=== PATIENT | male | born 1985 | race Hispanic/Latino ===

== ENCOUNTER 2020-04-03 15:59 | Emergency (ER) | payer SELFPAY ==
[2020-04-03 16:13] VITALS: BP 162/109
[2020-04-03] MEDS ORDERED: predniSONE 20 MG TAB PO ONE (17:14)
[2020-04-03] MEDS ORDERED: KETOROLAC 30 MG/1 ML INJ IM ONE (17:14)
--- NOTE | 2020-04-03 18:08 | Emergency Department Report ---
ED Back Pain/Injury HPI - General Chief Complaint: Back Pain/Injury Stated Complaint: BACK PAIN Time Seen by Provider: 04/03/20 16:49 Source: patient Limitations: No Limitations - History of Present Illness Initial Comments: This is a 34-year-old male who presents the ED with a history of cervical radiculopathy complaining of lower back pain that began 4 to 5 days ago. Patient states he used to see [facility] orthopedics for history of cervical radiculopathy but has not been there for his lower back. Patient states that he works a lot and was at work today when he had to leave due to his lower back pain. He denies any injury trauma and urinary symptoms bowel irregularities or any other problems. MD Complaint: back pain - Related Data Previous Rx's Medication Instructions Recorded Last Taken Type Ibuprofen [Motrin] 600 mg PO Q8H PRN #60 tablet 10/27/15 Unknown Rx Penicillin Vk [Veetids TAB] 500 mg PO QID #40 tablet 10/27/15 Unknown Rx traMADoL [Ultram] 50 mg PO Q6HR PRN #14 tablet 10/27/15 Unknown Rx Cyclobenzaprine [Flexeril] 10 mg PO QHS PRN #10 tablet 04/03/20 Unknown Rx Ibuprofen [Motrin] 800 mg PO Q8HR #30 tablet 04/03/20 Unknown Rx Allergies Allergy/AdvReac Type Severity Reaction Status Date / Time No Known Allergies Allergy Verified 09/11/15 08:55 ED Review of Systems ROS: Stated complaint: BACK PAIN Other details as noted in HPI Comment: All other systems reviewed and negative ED Past Medical Hx - Past Medical History CERVICAL RADICULOPATHY. MRSA ED Back Pain Physical Exam - Exam General: Vital signs noted. No distress. Alert and acting appropriately. Back/Abdomen: No Abdominal Tenderness, No Perithoracic Tenderness, No Perilumbar Tenderness, No Sacroiliac Tenderness, No Flank Tenderness, No Straight Leg Raise Pain Neuro: Yes Normal Sensation, Yes Normal DTR's, Yes Normal Gait, No Motor Weakness ED Course Vital Signs 04/03/20 04/03/20 16:10 16:12 Temperature 98.1 F Pulse Rate 106 H Respiratory 20 Rate Blood Pressure 155/117 Blood Pressure 162/109 [Left] O2 Sat by Pulse 100 Oximetry ED Medical Decision Making - Medical Decision Making 34-year-old female presents to ED with myalgia of the lower back secondary to lumbar radiculopathy ED course: Patient received Toradol and prednisone in ED. Vital signs are normal patient is in no acute distress Discussed with patient follow-up with primary care physician. I also discussed to follow-up with [facility] to continue care. Discussed back brace for work Discussed the patient and take medications as prescribed. Patient has no neurological deficit. Patient is alert and oriented 3 and understands all instructions given. Discussed drowsiness effect of Flexeril makes him drowsy and not to operate machinery while taking flexeril Critical care attestation.: If time is entered above; I have spent that time in minutes in the direct care of this critically ill patient, excluding procedure time. ED Disposition Clinical Impression: Lumbar radiculopathy Disposition: TO HOME OR SELFCARE Is pt being admited?: No Does the pt Need Aspirin: No Condition: Stable Instructions: Lumbar Radiculopathy (ED) Additional Instructions: Make sure to follow up with the primary care physician as discussed. If you have any worsening symptoms or develop new symptoms please return to ED immediately. Prescriptions: Cyclobenzaprine [Flexeril] 10 mg PO QHS PRN #10 tablet PRN Reason: Muscle Spasm Ibuprofen [Motrin] 800 mg PO Q8HR #30 tablet Referrals: PRIMARY CARE, [Primary Care Provider] - 3-5 Days [facility] [Provider Group] - 3-5 Days Forms: Work/School Release Form(ED) Time of Disposition: 18:15
== END 2020-04-03 18:22 | disposition home or self-care (01) ==
LOC: ED 15:59
DX: M54.16 Radiculopathy, lumbar region (principal); Z79.899 Other long term (current) drug therapy
CPT/HCPCS: 96372; 99282; J1885; J7512

== ENCOUNTER 2022-04-10 08:02 | Emergency (ER) | payer SELFPAY ==
[2022-04-10] MEDS ORDERED: ONDANSETRON 4 MG/2 ML INJ IV PRN (08:32)
[2022-04-10] MEDS ORDERED: NALOXONE 0.4 MG/1 ML INJ IV PRN (08:32)
--- NOTE | 2022-04-10 08:36 | Emergency Department Report ---
ED General Adult HPI - General Chief complaint: Overdose Stated complaint: OVERDOSE PUI?: No Time Seen by Provider: 04/10/22 08:26 Source: patient, EMS (Verbal report received from emergency medical services. EMS documentation not available at time of chart dictation ), RN notes reviewed, old records reviewed Mode of arrival: Stretcher Limitations: Other (Intoxication) - History of Present Illness Initial comments: The patient was evaluated in the emergency department for symptoms described in the history of present illness. He/she was evaluated in the context of the global COVID-19 pandemic, which necessitated consideration that the patient might be at risk for infection with the virus that causes COVID-19. [facility] protocols and algorithms that pertain to the evaluation of patients at risk for COVID-19 are in a state of rapid change based on information released by regulatory bodies including the CDC and federal and state organizations. These policies and algorithms were followed during the patient's care in the emergency department. Please note that these policies, procedures and recommendations changed on a rapid basis. This patient is a 36-year-old gentleman who was brought to the hospital by emergency medical services with an EMS articulated complaint of overdose. EMS reports that they were called by patient's abdirashid. They report that they have a suspicion for the patient having overdosed on opioids. They report the patient is found in a chair, minimally responsive, breathing 6 times per minute. EMS gave the patient Narcan in the field, with immediate improvement in symptoms. The patient denies physical pain. The patient reports consuming recreational alcohol. The patient denies opioid overdose. The patient denies homicidality and suicidality. He reports that he feels "fin e" at the moment. -: This morning Severity scale (0 -10): 0 Consistency: now resolved Improves with: other (Narcan) Worsens with: none - Related Data Previous Rx's Medication Instructions Recorded Last Taken Type Ibuprofen [Motrin] 600 mg PO Q8H PRN #60 tablet 10/27/15 Unknown Rx Penicillin Vk [Veetids TAB] 500 mg PO QID #40 tablet 10/27/15 Unknown Rx Ibuprofen [Motrin] 800 mg PO Q8HR #30 tablet 04/03/20 Unknown Rx Multivitamin with Folic Acid [Cvs 400 mcg PO QDAY #30 tablet 04/10/22 Unknown Rx One Daily Essential Tablet] Naloxone HCl [Narcan Nasal [place]] 4 mg NS PRN PRN #1 spray 04/10/22 Unknown Rx Ondansetron [Zofran Odt] 4 mg PO Q8HR PRN #20 tab.rapdis 04/10/22 Unknown Rx Allergies Allergy/AdvReac Type Severity Reaction Status Date / Time No Known Allergies Allergy Verified 04/10/22 08:08 ED Review of Systems ROS: Stated complaint: OVERDOSE Other details as noted in HPI Constitutional: denies: fever Eyes: denies: eye discharge ENT: denies: epistaxis Respiratory: denies: cough Cardiovascular: denies: chest pain Gastrointestinal: nausea, vomiting. denies: abdominal pain Psychiatric: denies: homicidal thoughts, suicidal thoughts ED Past Medical Hx - Past Medical History Hx Kidney Stones: Yes Additional medical history: CERVICAL RADICULOPATHY. MRSA - Surgical History Additional Surgical History: wrist - Social History Smoking Status: Current Every Day Smoker Substance Use Type: Alcohol - Medications Home Medications: Home Medications Medication Instructions Recorded Confirmed Last Taken Type Ibuprofen [Motrin] 600 mg PO Q8H PRN #60 tablet 10/27/15 Unknown Rx Penicillin Vk [Veetids TAB] 500 mg PO QID #40 tablet 10/27/15 Unknown Rx Ibuprofen [Motrin] 800 mg PO Q8HR #30 tablet 04/03/20 Unknown Rx Multivitamin with Folic Acid [[facility]vs 400 mcg PO QDAY #30 tablet 04/10/22 Unknown Rx One Daily Essential Tablet] Naloxone HCl [Narcan Nasal [place]] 4 mg NS PRN PRN #1 spray 04/10/22 Unknown Rx Ondansetron [Zofran Odt] 4 mg PO Q8HR PRN #20 tab.rapdis 04/10/22 Unknown Rx ED Physical Exam - General Limitations: Other (Patient presents as intoxicated) General appearance: appears intoxicated - Head Head exam: Present: atraumatic, normocephalic - Eye Eye exam: Present: normal appearance, EOMI, other. Absent: nystagmus - ENT ENT exam: Present: normal exam, normal orophraynx, mucous membranes moist, normal external ear exam - Neck Neck exam: Present: normal inspection, full ROM. Absent: tenderness, meningismus - Respiratory Respiratory exam: Present: normal lung sounds bilaterally. Absent: respiratory distress, wheezes, rales, rhonchi, stridor, decreased breath sounds - Cardiovascular Cardiovascular Exam: Present: regular rate, normal rhythm, normal heart sounds. Absent: bradycardia, tachycardia, irregular rhythm, systolic murmur, diastolic murmur, rubs, gallop - GI/Abdominal GI/Abdominal exam: Present: soft. Absent: distended, tenderness, guarding, rebound, rigid, pulsatile mass - Rectal Rectal exam: Present: deferred - Extremities Exam Extremities exam: Present: normal inspection, full ROM, other (2+ pulses noted in the bilateral upper and lower extremities. There is no palpable cord. negative Homans sign. Muscular compartments are soft. The pelvis is stable.). Absent: pedal edema, calf tenderness - Back Exam Back exam: Present: normal inspection. Absent: tenderness, CVA tenderness (R), CVA tenderness (L), paraspinal tenderness, vertebral tenderness - Neurological Exam Neurological exam: Present: other (There is no facial droop. The tongue is midline. EOMI. 5 out of 5 strength in 4 extremities.) - Psychiatric Psychiatric exam: Absent: homicidal ideation, suicidal ideation - Skin Skin exam: Present: warm, dry, intact, normal color. Absent: rash ED Course Vital Signs 04/10/22 04/10/22 04/10/22 08:04 08:42 08:46 Temperature 98.3 F Pulse Rate 87 Respiratory 14 Rate Blood Pressure Blood Pressure 138/86 [Left] O2 Sat by Pulse 97 93 93 Oximetry O2 Sat by Pulse Oximetry [ Digit-Finger] 04/10/22 04/10/22 04/10/22 09:00 09:16 09:30 Temperature Pulse Rate 71 73 77 Respiratory 9 L 11 L 9 L Rate Blood Pressure Blood Pressure [Left] O2 Sat by Pulse 97 98 Oximetry O2 Sat by Pulse Oximetry [ Digit-Finger] 04/10/22 04/10/22 04/10/22 09:46 10:00 10:16 Temperature Pulse Rate 67 71 65 Respiratory 10 L 13 9 L Rate Blood Pressure Blood Pressure [Left] O2 Sat by Pulse 96 97 100 Oximetry O2 Sat by Pulse Oximetry [ Digit-Finger] 04/10/22 04/10/22 04/10/22 10:30 10:46 11:00 Temperature Pulse Rate 82 66 65 Respiratory 14 8 L 8 L Rate Blood Pressure Blood Pressure [Left] O2 Sat by Pulse 99 100 99 Oximetry O2 Sat by Pulse Oximetry [ Digit-Finger] 04/10/22 04/10/22 04/10/22 11:16 11:25 11:30 Temperature Pulse Rate 66 66 Respiratory 8 L 9 L Rate Blood Pressure 111/64 Blood Pressure [Left] O2 Sat by Pulse 98 98 97 Oximetry O2 Sat by Pulse Oximetry [ Digit-Finger] 04/10/22 04/10/22 04/10/22 11:41 11:46 12:00 Temperature Pulse Rate 66 65 Respiratory 9 L 9 L Rate Blood Pressure 111/64 110/67 Blood Pressure [Left] O2 Sat by Pulse 97 99 Oximetry O2 Sat by Pulse 99 Oximetry [ Digit-Finger] 04/10/22 04/10/22 04/10/22 12:16 12:30 12:46 Temperature Pulse Rate 61 70 56 L Respiratory 7 L 13 8 L Rate Blood Pressure 110/67 113/65 113/65 Blood Pressure [Left] O2 Sat by Pulse 98 98 100 Oximetry O2 Sat by Pulse Oximetry [ Digit-Finger] - Reevaluation(s) Reevaluation #1: 04/10/22 09:17 Differential diagnosis, including but not limited to: Alcohol intoxication, opioid overdose Assessment and plan: 36-year-old gentleman, who was intoxicated, but pleasant, calm and cooperative, alert to name, place and location, who is not homicidal, who is not suicidal, presenting with probable opioid overdose complicated by alcohol intoxication. Lung sounds clear. No history of head trauma. As per EMS, they gave Narcan at approximately 7:30 AM. We will observe patient pending clinical sobriety, and at least for 4 hours. As needed Zofran, as needed Narcan ordered. Reassess after laboratory studies have resulted, and we will continue to reassess for clinical sobriety. 04/10/22 11:41 No acute distress. Laboratory studies unremarkable. Sleeping comfortably in stretcher. O2 sat 98%. 04/10/22 13:17 The patient is reevaluated. He is awake, alert, oriented and sober at this time. He denies physical complaints at this time. His is here to pick him up. He will be discharged at this time. No desaturation noted. - Pulse Oximetry Interpretation Digit-Finger Initial Pulse Oximetry Readin O2 Sat by Pulse Oximetry: 99 Actions Taken: none ED Medical Decision Making - Lab Data Result diagrams: 04/10/22 08:50 Vital Signs 04/10/22 08:04 Temperature 98.3 F Pulse Rate 87 Respiratory 14 Rate Blood Pressure 138/86 [Left] O2 Sat by Pulse 97 Oximetry Lab Results 04/10/22 04/10/22 04/10/22 Range/Units 08:50 08:50 08:50 Sodium 136 L (137-145) mmol/L Potassium 3.5 L (3.6-5.0) mmol/L Chloride 97.1 L (98-107) mmol/L Carbon Dioxide 27 (22-30) mmol/L Anion Gap 15 mmol/L BUN 22 H (9-20) mg/dL Creatinine 1.0 (0.8-1.3) mg/dL Estimated GFR > 60 ml/min BUN/Creatinine Ratio 22 % Glucose 94 (75-100) mg/dL Calcium 8.4 (8.4-10.2) mg/dL Magnesium 2.30 (1.7-2.3) mg/dL Total Bilirubin 0.30 (0.1-1.2) mg/dL AST 32 (5-40) units/L ALT 28 (7-56) units/L Alkaline Phosphatase 77 (35-129) units/L Total Protein 7.1 (6.3-8.2) g/dL Albumin 4.3 (3.9-5) g/dL Albumin/Globulin Ratio 1.5 % Salicylates < 0.3 L (2.8-20.0) mg/dL Acetaminophen 5.0 L (10.0-30.0) ug/mL Plasma/Serum Alcohol (0-0.07) % 04/10/22 Range/Units 08:50 Sodium (137-145) mmol/L Potassium (3.6-5.0) mmol/L Chloride (98-107) mmol/L Carbon Dioxide (22-30) mmol/L Anion Gap mmol/L BUN (9-20) mg/dL Creatinine (0.8-1.3) mg/dL Estimated GFR ml/min BUN/Creatinine Ratio % Glucose (75-100) mg/dL Calcium (8.4-10.2) mg/dL Magnesium (1.7-2.3) mg/dL Total Bilirubin (0.1-1.2) mg/dL AST (5-40) units/L ALT (7-56) units/L Alkaline Phosphatase (35-129) units/L Total Protein (6.3-8.2) g/dL Albumin (3.9-5) g/dL Albumin/Globulin Ratio % Salicylates (2.8-20.0) mg/dL Acetaminophen (10.0-30.0) ug/mL Plasma/Serum Alcohol < 0.01 (0-0.07) % - EKG Data -: EKG Interpreted by Me EKG shows normal: sinus rhythm Rate: normal - EKG Data When compared to previous EKG there are: previous EKG unavailable 04/10/22 09:15 The EKG is interpreted at 8: 45 Sinus rhythm, 73 bpm. Normal axis, normal P wave axis, QTC 4 9 5 ms, and high left ventricular voltage. This is an abnormal EKG. This is not a STEMI peer Critical care attestation.: If time is entered above; I have spent that time in minutes in the direct care of this critically ill patient, excluding procedure time. ED Disposition Clinical Impression: Overdose Disposition: 01 HOME / SELF CARE / HOMELESS Is pt being admited?: No Does the pt Need Aspirin: No Condition: Good Instructions: Accidental Drug Poisoning, Adult Additional Instructions: Avoid consumption of alcohol, tobacco, smoke products. Do not consume opioids, narcotics, or recreational drugs. Consumption of recreational drugs may lead to overdose, which can cause , disability, paralysis, loss of quality of life. Use the Narcan medication as needed and directed. Follow-up with a primary care doctor within the next week for repeat checkup and evaluation. Recommend that patient not drive or operate motor vehicles until medically cleared to do so by a primary care doctor. Please return to the emergency room right away with new pain, worsened pain, migration of pain, projectile vomiting, change in mental status, confusion, inability tolerate liquid feeds, new, worsened or different symptoms not present on the initial emergency room evaluation Prescriptions: Multivitamin with Folic Acid [Cvs One Daily Essential Tablet] 400 mcg PO QDAY #30 tablet Naloxone HCl [Narcan Nasal [place]] 4 mg NS PRN PRN #1 spray PRN Reason: Opioid Reversal Ondansetron [Zofran Odt] 4 mg PO Q8HR PRN #20 tab.rapdis PRN Reason: Nausea Referrals: [facility] [Outside] - 3-5 Days [facility] [Outside] - 3-5 Days [facility] [Provider Group] - 3-5 Days Forms: Work/School Release Form(ED)
[2022-04-10 09:33] LABS: Alanine Aminotransferase 28 units/L (7-56); Albumin 4.3 g/dL (3.9-5); BUN/Creatinine Ratio 22; Blood Urea Nitrogen 22 mg/dL (9-20); Calcium 8.4 mg/dL (8.4-10.2); Hemolysis Index 8
--- NOTE | 2022-04-10 11:19 | Electrocardiograph Report ---
[facility] Test Date: 2022-04-10 Test Time: 08:45:12 Pat Name: SIDNEY LEVY Department: Room: Gender: M Sales Marketing Manager: GAURAV : 1985 Requested By: SHON LOYOLA Order Number: [id number] Reading MD: Sebastian Reid Measurements Intervals [place] Rate: 73 P: 58 OR: 142 QRS: 54 QRSD: 101 T: 51 QT: 449 QTc: 495 Interpretive Statements Sinus rhythm Probable left ventricular hypertrophy Prolonged QT interval No previous ECG available for comparison Electronically Signed On 04-10-2022 11:18:26 EDT by Sebastian Reid
[2022-04-10 14:36] VITALS: BP 121/64
== END 2022-04-10 14:00 | disposition home or self-care (01) ==
LOC: ED 08:02
DX: T65.91XA Toxic effect of unspecified substance, accidental (unintentional), initial encounter (principal); Y92.89 Other specified places as the place of occurrence of the external cause; F17.200 Nicotine dependence, unspecified, uncomplicated; F10.20 Alcohol dependence, uncomplicated
CPT/HCPCS: 36415; 80053; 80320; 83735; 93005; 99283; G0480

== ENCOUNTER 2022-04-18 18:19 | Emergency (ER) | payer SELFPAY ==
--- NOTE | 2022-04-18 18:52 | Emergency Department Report ---
HPI - HPI HPI: Room 20 The patient is a 36-year-old male present with a chief complaint of opiate overdose. The patient was in the car with family when he states he intentionally took to 30 mg Roxicet. Patient admits to consuming alcohol earlier in the day. The patient went unresponsive and EMS was called. CPR was performed and the patient was administered Narcan 4 mg with eventual improvement of his mental status. Patient now complains of some pain to left lower ribs from CPR. Patient denies suicidal ideation <JOEL CACERES - Last Filed: 04/18/22 20:40> <MG SUTTON - Last Filed: 04/19/22 05:58> - General Chief Complaint: Overdose Time Seen by Provider: 04/18/22 18:41 ED Past Medical Hx - Past Medical History Previous Medical History?: Yes Hx Kidney Stones: Yes Additional medical history: CERVICAL RADICULOPATHY. MRSA - Surgical History Additional Surgical History: wrist - Family History Family history: no significant - Social History Smoking Status: Current Every Day Smoker (1 pack/day) Substance Use Type: Alcohol (50 ounces of beer daily), Other (Roxicet/Percocet) <JOEL CACERES - Last Filed: 04/18/22 20:40> <MG SUTTON - Last Filed: 04/19/22 05:58> - Medications Home Medications: Home Medications Medication Instructions Recorded Confirmed Last Taken Type Ibuprofen [Motrin] 600 mg PO Q8H PRN #60 tablet 10/27/15 Unknown Rx Penicillin Vk [Veetids TAB] 500 mg PO QID #40 tablet 10/27/15 Unknown Rx Ibuprofen [Motrin] 800 mg PO Q8HR #30 tablet 04/03/20 Unknown Rx Multivitamin with Folic Acid [[facility] 400 mcg PO QDAY #30 tablet 04/10/22 Unknown Rx One Daily Essential Tablet] Naloxone HCl [Narcan Nasal [place]] 4 mg NS PRN PRN #1 spray 04/10/22 Unknown Rx Ondansetron [Zofran Odt] 4 mg PO Q8HR PRN #20 tab.rapdis 04/10/22 Unknown Rx ED Review of Systems ROS: Stated complaint: OVERDOSE Other details as noted in HPI Constitutional: no symptoms reported Eyes: denies: eye pain ENT: denies: throat pain Respiratory: no symptoms reported Cardiovascular: denies: chest pain Endocrine: no symptoms reported Gastrointestinal: denies: abdominal pain Genitourinary: denies: dysuria Musculoskeletal: myalgia Neurological: denies: headache <JOEL CACERES - Last Filed: 04/18/22 20:40> ROS: Stated complaint: OVERDOSE Other details as noted in HPI <MG SUTTONJuan R - Last Filed: 04/19/22 05:58> Physical Exam - Physical Exam Vital Signs: Vital Signs 04/18/22 18:40 Pulse Rate 82 Respiratory 19 Rate Blood Pressure 119/74 [Left] O2 Sat by Pulse 96 Oximetry Physical Exam: GENERAL: The patient is well-developed well-nourished male lying on stretcher not appearing to be in acute distress. [] HEENT: Normocephalic. Atraumatic. Extraocular motions are intact. Patient has moist mucous membranes. NECK: Supple. Trachea midline CHEST/LUNGS: Clear to auscultation. There is no respiratory distress noted. HEART/CARDIOVASCULAR: Regular. There is no tachycardia. There is no gallop rub or murmur. ABDOMEN: Abdomen is soft, nontender. Patient has normal bowel sounds. There is no abdominal distention. SKIN: There is no rash. There is no edema. There is no diaphoresis. NEURO: The patient is awake, alert, and oriented. The patient is cooperative. The patient has no focal neurologic deficits. The patient has normal speech. GCS 15 MUSCULOSKELETAL: There is soreness along the left lower ribs anteriorly. There is no evidence of acute injury. <JOEL CACERES - Last Filed: 04/18/22 20:40> - Physical Exam Vital Signs: Vital Signs 04/18/22 04/18/22 04/18/22 18:40 18:42 18:46 Temperature 99.2 F Pulse Rate 82 79 Respiratory 19 18 Rate Blood Pressure 119/74 Blood Pressure 119/74 [Left] O2 Sat by Pulse 96 96 98 Oximetry 04/18/22 04/18/22 04/18/22 19:00 19:16 19:30 Temperature Pulse Rate 86 Respiratory 23 23 18 Rate Blood Pressure 114/71 114/71 114/71 Blood Pressure [Left] O2 Sat by Pulse 97 94 96 Oximetry 04/18/22 04/18/22 04/18/22 19:46 20:00 20:16 Temperature Pulse Rate 80 75 76 Respiratory 21 14 14 Rate Blood Pressure 114/71 112/64 112/64 Blood Pressure [Left] O2 Sat by Pulse 94 95 95 Oximetry 04/18/22 04/18/22 04/18/22 20:30 20:46 21:00 Temperature Pulse Rate 78 77 81 Respiratory 17 14 16 Rate Blood Pressure 112/64 112/64 112/59 Blood Pressure [Left] O2 Sat by Pulse 93 94 94 Oximetry 04/18/22 04/18/22 04/18/22 21:16 21:30 21:46 Temperature Pulse Rate 75 83 81 Respiratory 14 22 21 Rate Blood Pressure 112/59 112/59 112/59 Blood Pressure [Left] O2 Sat by Pulse 95 96 94 Oximetry 04/18/22 04/18/22 22:00 22:16 Temperature Pulse Rate 78 80 Respiratory 16 15 Rate Blood Pressure 112/66 112/66 Blood Pressure [Left] O2 Sat by Pulse 94 94 Oximetry <MG SUTTON - Last Filed: 04/19/22 05:58> ED Course Vital Signs 04/18/22 18:40 Pulse Rate 82 Respiratory 19 Rate Blood Pressure 119/74 [Left] O2 Sat by Pulse 96 Oximetry - Consultations Consultation #1: 04/18/22 20:10 Case discussed with audio recording engineer Dr Beach-states can trend troponin if repeat troponin is elevated, admit the patient to the hospital <JOEL CACERES - Last Filed: 04/18/22 20:40> Vital Signs 04/18/22 04/18/22 04/18/22 18:40 18:42 18:46 Temperature 99.2 F Pulse Rate 82 79 Respiratory 19 18 Rate Blood Pressure 119/74 Blood Pressure 119/74 [Left] O2 Sat by Pulse 96 96 98 Oximetry 04/18/22 04/18/22 04/18/22 19:00 19:16 19:30 Temperature Pulse Rate 86 Respiratory 23 23 18 Rate Blood Pressure 114/71 114/71 114/71 Blood Pressure [Left] O2 Sat by Pulse 97 94 96 Oximetry 04/18/22 04/18/22 04/18/22 19:46 20:00 20:16 Temperature Pulse Rate 80 75 76 Respiratory 21 14 14 Rate Blood Pressure 114/71 112/64 112/64 Blood Pressure [Left] O2 Sat by Pulse 94 95 95 Oximetry 04/18/22 04/18/22 04/18/22 20:30 20:46 21:00 Temperature Pulse Rate 78 77 81 Respiratory 17 14 16 Rate Blood Pressure 112/64 112/64 112/59 Blood Pressure [Left] O2 Sat by Pulse 93 94 94 Oximetry 04/18/22 04/18/22 04/18/22 21:16 21:30 21:46 Temperature Pulse Rate 75 83 81 Respiratory 14 22 21 Rate Blood Pressure 112/59 112/59 112/59 Blood Pressure [Left] O2 Sat by Pulse 95 96 94 Oximetry 04/18/22 04/18/22 22:00 22:16 Temperature Pulse Rate 78 80 Respiratory 16 15 Rate Blood Pressure 112/66 112/66 Blood Pressure [Left] O2 Sat by Pulse 94 94 Oximetry - Reevaluation(s) Reevaluation #1: 04/18/22 23:45 Patient now is alert, oriented x3 in no acute distress. Patient is complaining of lower chest pain at the CPR site. He stated that the pain is when you push on the chest. Patient troponin slightly elevated at 0.03 and the second troponin is 0.06. According to Dr. Caceres notes that he spoke to , audio recording engineer on-call and advised to admit the patient if troponin is increasing. I discussed the patient with Dr. Beach, audio recording engineer on-call and informed him about the elevation of the second troponin. He advised to discharge patient h ome. <MG SUTTON - Last Filed: 04/19/22 05:58> ED Medical Decision Making - Lab Data Result diagrams: 04/18/22 19:05 04/18/22 19:05 - EKG Data -: EKG Interpreted by Me EKG shows normal: sinus rhythm, axis Rate: normal - EKG Data When compared to previous EKG there are: previous EKG unavailable Interpretation: other (No ischemic changes seen) - Radiology Data Radiology results: report reviewed (Chest x-ray with left rib series), image reviewed (Chest x-ray with left rib series) interpreted by me: Chest x-ray with left rib series-no focal infiltrates, no pneumothorax. No displaced rib fracture seen [facility] [address] [place] [address] XRay Report Signed Patient: SIDNEY LEVY MR#: [id number] : 1985 Acct:[id number] Age/Sex: 36 / M ADM Date: 04/18/22 Loc: ED Attending Dr: Ordering Physician: JOEL CACERES MD Date of Service: 04/18/22 Procedure(s): XR ribs UNI w PA chest 3+V LT Accession Number(s): [id number] cc: JOEL CACERES MD Fluoro Time In Minutes: LEFT RIBS 5 VIEWS INDICATION / CLINICAL INFORMATION: Left lower rib pain after CPR. COMPARISON: None available. FINDINGS: RIBS: No acute, displaced fracture or other acute abnormality. LUNGS: No acute findings. No pneumothorax. Signer Name: Steven Rosales MD Signed: 04/18/2022 7:18 PM Workstation Name: [id number] Transcribed By: SB Dictated By: STEVEN ROSALES MD Electronically Authenticated By: STEVEN ROSALES MD Signed Date/Time: 04/18/221917 DD/ 16 TD/TT: - Differential Diagnosis Opiate overdose, rib fracture, rib contusion <JOEL CACERES - Last Filed: 04/18/22 20:40> - Lab Data Result diagrams: 04/18/22 19:05 04/18/22 19:05 <MG SUTTON - Last Filed: 04/19/22 05:58> Critical care attestation.: If time is entered above; I have spent that time in minutes in the direct care of this critically ill patient, excluding procedure time. <JOEL CACERES - Last Filed: 04/18/22 20:40> Critical Care Time: Yes Critical care time in (mins) excluding proc time.: 35 Critical care attestation.: If time is entered above; I have spent that time in minutes in the direct care of this critically ill patient, excluding procedure time. <MG SUTTON - Last Filed: 04/19/22 05:58> ED Disposition <JOEL CACERES - Last Filed: 04/18/22 20:40> Is pt being admited?: No <MG SUTTON - Last Filed: 04/19/22 05:58> Clinical Impression: Opiate overdose, Elevated troponin, Overdose Disposition: 01 HOME / SELF CARE / HOMELESS Condition: Stable Instructions: Accidental Drug Poisoning, Adult, Opioid Overdose Referrals: KENTON ARAUJO MD [Primary Care Provider] - 3-5 Days
--- NOTE | 2022-04-18 19:22 | XRay Report ---
LEFT RIBS 5 VIEWS INDICATION / CLINICAL INFORMATION: Left lower rib pain after CPR. COMPARISON: None available. FINDINGS: RIBS: No acute, displaced fracture or other acute abnormality. LUNGS: No acute findings. No pneumothorax. Signer Name: Steven Rosales MD Signed: 04/18/2022 7:18 PM Workstation Name: [id number]
[2022-04-18 19:27] LABS: Basophils % (Auto) 0.2 % (0.0-1.8); Eosinophils # (Auto) 0.1 K/mm3 (0.0-0.4); Eosinophils % (Auto) 0.9 % (0.0-4.3); Hemoglobin 15.2 gm/dl (11.8-15.2); Lymphocytes # (Auto) 1.1 K/mm3 (1.2-5.4); Mean Corpuscular HGB Conc 35 % (32-34); Mean Corpuscular Volume 93 fl (84-94); Monocytes # (Auto) 0.7 K/mm3 (0.0-0.8); Monocytes % (Auto) 5.5 % (0.0-7.3); Platelet Count 203 K/mm3 (140-440); Red Blood Count 4.74 M/mm3 (3.65-5.03); Red Cell Distribution Width 13.9 % (13.2-15.2)
[2022-04-18 19:44] LABS: Amphetamine Screen,Urine Negative; Benzodiazepines Screen,Urine Negative; Cannabinoid Screen,Urine Negative; Cocaine Screen,Urine Negative; Methadone Screen,Urine Negative; Opiate Screen,Urine Negative
[2022-04-18 19:51] LABS: Creatine Kinase MB 4.5 ng/mL (0.0-4.0)
[2022-04-18 19:52] LABS: Blood Urea Nitrogen 11 mg/dL (9-20); Hemolysis Index 6
[2022-04-18 19:57] LABS: BUN/Creatinine Ratio 16
[2022-04-18 20:16] LABS: Chol/HDL Ratio 2.01 %; HDL Cholesterol 74 mg/dL (40-59); LDL Cholesterol,Direct 62 mg/dL (50-130)
[2022-04-19 04:50] VITALS: BP 137/74
--- NOTE | 2022-04-19 21:35 | Electrocardiograph Report ---
[facility] Test Date: 2022-04-18 Test Time: 19:28:40 Pat Name: SIDNEY LEVY Department: Room: Gender: M [address] Justice: ER : 1985 Requested By: JOEL CACERES Order Number: [id number] Reading MD: Allison Zamora Measurements Intervals [place] Rate: 71 P: 27 LA: 134 QRS: 61 QRSD: 90 T: 51 QT: 417 QTc: 454 Interpretive Statements Sinus rhythm Probable left ventricular hypertrophy Early repolarization ST changes Compared to ECG 04/10/2022 08:45:12 No significant change Electronically Signed On 04-19-2022 21:35:17 EDT by Allison Zamora
== END 2022-04-19 05:00 | disposition home or self-care (01) ==
LOC: ED 18:19
DX: T40.601A Poisoning by unspecified narcotics, accidental (unintentional), initial encounter (principal); R77.8 Other specified abnormalities of plasma proteins; N20.0 Calculus of kidney; F17.200 Nicotine dependence, unspecified, uncomplicated; Y92.89 Other specified places as the place of occurrence of the external cause
CPT/HCPCS: 36415; 80048; 80061; 80307; 80320; 82550; 82553; 84484; 85025; 93005; 99285; G0480

== ENCOUNTER 2022-06-18 15:52 | Emergency (ER) | payer SELFPAY ==
--- NOTE | 2022-06-18 17:15 | Emergency Department Report ---
History of Present Illness - General Chief Complaint: Overdose Stated Complaint: OVERDOSE Time Seen by Provider: 06/18/22 16:55 Source: EMS Mode of arrival: Stretcher Limitations: No Limitations - History of Present Illness Initial Comments: 37-year-old male with history of heroin abuse presents with EMS after a suspected heroin overdose. - Related Data Previous Rx's Medication Instructions Recorded Last Taken Type Ibuprofen [Motrin] 600 mg PO Q8H PRN #60 tablet 10/27/15 Unknown Rx Penicillin Vk [Veetids TAB] 500 mg PO QID #40 tablet 10/27/15 Unknown Rx Ibuprofen [Motrin] 800 mg PO Q8HR #30 tablet 04/03/20 Unknown Rx Multivitamin with Folic Acid [[facility]vs 400 mcg PO QDAY #30 tablet 04/10/22 Unknown Rx One Daily Essential Tablet] Naloxone HCl [Narcan Nasal [place]] 4 mg NS PRN PRN #1 spray 04/10/22 Unknown Rx Ondansetron [Zofran Odt] 4 mg PO Q8HR PRN #20 tab.rapdis 04/10/22 Unknown Rx Allergies Allergy/AdvReac Type Severity Reaction Status Date / Time No Known Allergies Allergy Verified 04/10/22 08:08 ED Review of Systems ROS: Stated complaint: OVERDOSE Other details as noted in HPI ED Past Medical Hx - Past Medical History Hx Kidney Stones: Yes Additional medical history: CERVICAL RADICULOPATHY. MRSA, heroin use - Surgical History Additional Surgical History: wrist - Social History Smoking Status: Current Every Day Smoker (1 pack/day) Substance Use Type: Alcohol (50 ounces of beer daily), Other (Roxicet/Percocet) - Medications Home Medications: Home Medications Medication Instructions Recorded Confirmed Last Taken Type Ibuprofen [Motrin] 600 mg PO Q8H PRN #60 tablet 10/27/15 Unknown Rx Penicillin Vk [Veetids TAB] 500 mg PO QID #40 tablet 10/27/15 Unknown Rx Ibuprofen [Motrin] 800 mg PO Q8HR #30 tablet 04/03/20 Unknown Rx Multivitamin with Folic Acid [[facility]vs 400 mcg PO QDAY #30 tablet 04/10/22 Unknown Rx One Daily Essential Tablet] Naloxone HCl [Narcan Nasal [place]] 4 mg NS PRN PRN #1 spray 04/10/22 Unknown Rx Ondansetron [Zofran Odt] 4 mg PO Q8HR PRN #20 tab.rapdis 04/10/22 Unknown Rx ED Physical Exam - General Limitations: No Limitations ED Course Vital Signs 06/18/22 06/18/22 06/18/22 15:56 16:11 16:15 Temperature 98.6 F Pulse Rate 108 H 77 Respiratory 14 18 Rate Blood Pressure 111/65 104/65 Blood Pressure 136/76 [Left] O2 Sat by Pulse 96 Oximetry 06/18/22 06/18/22 06/18/22 16:31 16:45 17:13 Temperature Pulse Rate 83 70 Respiratory 17 13 Rate Blood Pressure 104/65 110/68 Blood Pressure [Left] O2 Sat by Pulse 97 98 100 Oximetry Critical care attestation.: If time is entered above; I have spent that time in minutes in the direct care of this critically ill patient, excluding procedure time. ED Disposition Clinical Impression: Heroin overdose Qualifiers: Encounter type: initial encounter Injury intent: accidental or unintentional Qualified Code(s): T40.1X1A - Poisoning by heroin, accidental (unintentional), initial encounter Disposition: 01 HOME / SELF CARE / HOMELESS Is pt being admited?: No Condition: Stable Instructions: Opioid Overdose Time of Disposition: 19:16
[2022-06-18 18:14] VITALS: BP 110/68
--- NOTE | 2022-06-19 08:56 | Electrocardiograph Report ---
[facility] Test Date: 2022-06-18 Test Time: 16:22:34 Pat Name: SIDNEY LEVY Department: Room: Gender: M [employer]: NURSE : 1985 Requested By: ABEL TOLBERT Order Number: [id number] Reading MD: Miles Beach Measurements Intervals [place] Rate: 74 P: 66 SD: 154 QRS: 70 QRSD: 93 T: 68 QT: 430 QTc: 476 Interpretive Statements Sinus rhythm Probable left ventricular hypertrophy Compared to ECG 04/18/2022 19:28:40 ST (T wave) deviation no longer present Early repolarization no longer present Electronically Signed On 06-19-2022 8:56:24 EDT by Miles Beach
== END 2022-06-18 21:28 | disposition home or self-care (01) ==
LOC: ED 15:52
DX: T40.1X1A Poisoning by heroin, accidental (unintentional), initial encounter (principal); N20.0 Calculus of kidney; F17.200 Nicotine dependence, unspecified, uncomplicated; Y92.89 Other specified places as the place of occurrence of the external cause
CPT/HCPCS: 93005; 99283